=== PATIENT | female | born 1985 | race Caucasian/White ===

== ENCOUNTER 2016-12-16 09:12 | Day surgery (SDC) | payer OTHER ==
[2016-12-16 09:39] VITALS: BMI 20.1
[2016-12-16 09:57] VITALS: TEMP 97.1
[2016-12-16] MEDS ORDERED: Midazolam 2 MG/2 ML VIAL ONE ×2 (11:24→11:51)
[2016-12-16] MEDS ORDERED: Lidocaine Hydrochloride 5 ML INJ ONE (11:24)
[2016-12-16] MEDS ORDERED: Propofol 10 mg/ml Inj (20 ML) ONE ×3 (11:24→12:05)
[2016-12-16 13:16] VITALS: BP 103/71; PULSE 76; RESP 19; O2SAT 99
== END 2016-12-16 13:40 | disposition home or self-care (01) ==
LOC: C.ENDO 09:12
PROVIDERS: ATTEND Internal Medicine Gastroenterology
DX: D12.5 Benign neoplasm of sigmoid colon (principal); R19.7 Diarrhea, unspecified; K22.10 Ulcer of esophagus without bleeding; K29.70 Gastritis, unspecified, without bleeding; K64.8 Other hemorrhoids
CPT/HCPCS: 43239; 45385; 84703; 87045; 87177; 87209; 87230; 88305; 88312; 88313; 88342; J2250; J2704; J3010